=== PATIENT | male | born 1985 | race Caucasian/White ===

== ENCOUNTER 2020-05-30 12:45 | Emergency (ER) | payer OTHER ==
[~2020-05-30] VITALS: Ht 182.9 cm; Wt 73.0 kg
[~2020-05-30 12:45] MED LIST: ALBU90OI INH; CEPH500 PO; CETI10 PO; CRUTCH4 USE; DICY20 PO; ERYT333ERA PO; FAMO20 PO; HYDACE5 PO; HYDACE5325 PO; METPRE4DP PO; Mobic15 MG PO; NAPR550 PO; OXYACE5T PO; PERM5TC TOP; PRED20 PO; PROACE100 PO; PROM25 PO; RXHYD5325 PO; RXNAPNA550 PO; RXTRAM50 PO; SULTRIDS PO; TRAACE PO; VITAMENS; VITS
[2020-05-30] MEDS ORDERED: IBUP400 PO (15:24)
[2020-05-30] MEDS ORDERED: KEFLEX500 MG PO (15:24)
== END 2020-05-30 16:29 | disposition home or self-care (01) ==
LOC: ER 12:45
DX: M79.642 Pain in left hand (principal); Z88.0 Allergy status to penicillin; Z88.1 Allergy status to other antibiotic agents; Z88.5 Allergy status to narcotic agent; F17.210 Nicotine dependence, cigarettes, uncomplicated
CPT/HCPCS: 10060; 73140; 76882; 99283-25; A9270-GY; L3917

== ENCOUNTER 2020-06-03 11:21 | Emergency (ER) | payer OTHER ==
[~2020-06-03] VITALS: Ht 182.9 cm; Wt 72.1 kg
[~2020-06-03 11:21] MED LIST changes: -Bactrim Ds Tab1 EACH PO; -Percocet 5-3251 EACH PO
[2020-06-03] MEDS ORDERED: Bactrim Ds Tab1 EACH PO (15:48)
[2020-06-03] MEDS ORDERED: Percocet 5-3251 EACH PO (17:12)
== END 2020-06-03 17:17 | disposition home or self-care (01) ==
LOC: ER 11:21
DX: L02.512 Cutaneous abscess of left hand (principal); Z88.0 Allergy status to penicillin; Z88.5 Allergy status to narcotic agent; Z88.1 Allergy status to other antibiotic agents; F17.210 Nicotine dependence, cigarettes, uncomplicated
CPT/HCPCS: 73140; 87070; 87075; 87077; 87186; 87205; 99283-25

== ENCOUNTER → 2020-06-03 | Outpatient (CLI) | payer OTHER ==
[~2020-06-03] MED LIST changes: +Bactrim Ds Tab1 EACH PO; +IBUP400 PO; +KEFLEX500 MG PO; +Percocet 5-3251 EACH PO
== END | disposition home or self-care (01) ==
LOC: LAB EV 10:48 → LAB SHORT 10:48
DX: L08.9 Local infection of the skin and subcutaneous tissue, unspecified (principal)
CPT/HCPCS: 87070; 87075; 87077; 87186; 87205

== ENCOUNTER 2020-10-22 19:33 | Emergency (ER) | payer OTHER ==
[~2020-10-22] VITALS: Ht 182.9 cm; Wt 77.1 kg
[~2020-10-22 19:33] MED LIST changes: +Bactrim Ds Tab1 EACH PO; +Percocet 5-3251 EACH PO
[2020-10-22 20:13] LABS: BASOPHILS ABSOLUTE AUTO 0.03 K/mm3 (0.00-0.23); BASOPHILS PERCENT AUTO 0 % (0-2); EOSINOPHILS ABSOLUTE AUTO 0.29 K/mm3 (0.00-0.68); EOSINOPHILS PERCENT AUTO 3 % (0-6); Hematocrit 44.8 % (37.0-53.0); Hemoglobin 15.3 g/dL (13.5-17.5); IMMATURE GRAN ABSOLUTE AUTO 0.02 K/mm3 (0.00-0.10); IMMATURE GRAN PERCENT AUTO 0 % (0-1); LYMPHOCYTES ABSOLUTE AUTO 2.57 K/mm3 (0.84-5.20); LYMPHOCYTES PERCENT AUTO 24 % (21-46); MONOCYTES ABSOLUTE AUTO 0.65 K/mm3 (0.16-1.47); MONOCYTES PERCENT AUTO 6 % (4-13); Mean Corpuscular HGB 30.1 pg (26.0-34.0); Mean Corpuscular HGB Conc 34.2 g/dL (31.5-36.5); Mean Corpuscular Volume 88 fL (80-100); Mean Platelet Volume 10.8 fL (9.1-12.4); NEUTROPHILS PERCENT AUTO 67 % (41-73); Platelet Count 325 K/mm3 (150-400); RDW Coefficient Variation 12.6 % (11.7-14.2); RDW Standard Deviation 40.9 fL (35.1-46.3); Red Blood Cell Count 5.09 M/mm3 (4.30-5.90); White Blood Cell Count 10.86 K/mm3 (4.00-11.30)
[2020-10-22 20:31] LABS: Alanine Aminotransfer (ALT/SGP 16 U/L (12-78); Albumin, Blood 4.3 g/dL (3.4-5.0); Albumin/Globulin Ratio 1.3 (0.8-1.8); Alk Phos 91 U/L (50-136); Anion Gap 6 mmol/L (6-16); Aspartate Aminotrans (AST/SGOT 16 U/L (12-37); Bilirubin, Total 0.6 mg/dL (0.1-1.0); Blood Urea Nitrogen 15 mg/dL (8-24); Bun/Creatinine Ratio 13.6 (12.0-20.0); CO2, Blood 30 mmol/L (21-32); Calcium, Blood 9.4 mg/dL (8.5-10.1); Chloride, Blood 106 mmol/L (98-108); Globulin, Blood 3.4 g/dL (2.2-4.0); Glomerular Filtration Rate >60 (60-); Glucose, Blood 95 mg/dL (70-99); Potassium, Blood 3.7 mmol/L (3.5-5.5); Sodium, Blood 142 mmol/L (136-145); Total Protein, Blood 7.7 g/dL (6.4-8.2)
== END 2020-10-22 23:23 | disposition home or self-care (01) ==
LOC: ER 19:33
PROVIDERS: Physician Assistant
DX: B33.0 Epidemic myalgia (principal); F17.210 Nicotine dependence, cigarettes, uncomplicated; Z88.0 Allergy status to penicillin; Z88.1 Allergy status to other antibiotic agents
CPT/HCPCS: 36415; 80053; 83690; 85025; 96360; 99283-25; J7030

== ENCOUNTER 2021-01-11 09:44 | Emergency (ER) | payer OTHER ==
[~2021-01-11] VITALS: Ht 182.9 cm; Wt 77.1 kg
[2021-01-11 10:21] LABS: BASOPHILS ABSOLUTE AUTO 0.03 K/mm3 (0.00-0.23); BASOPHILS PERCENT AUTO 0 % (0-2); EOSINOPHILS ABSOLUTE AUTO 0.27 K/mm3 (0.00-0.68); EOSINOPHILS PERCENT AUTO 3 % (0-6); Hematocrit 45.3 % (37.0-53.0); Hemoglobin 15.2 g/dL (13.5-17.5); IMMATURE GRAN ABSOLUTE AUTO 0.03 K/mm3 (0.00-0.10); IMMATURE GRAN PERCENT AUTO 0 % (0-1); LYMPHOCYTES ABSOLUTE AUTO 2.22 K/mm3 (0.84-5.20); LYMPHOCYTES PERCENT AUTO 24 % (21-46); MONOCYTES ABSOLUTE AUTO 0.55 K/mm3 (0.16-1.47); MONOCYTES PERCENT AUTO 6 % (4-13); Mean Corpuscular HGB Conc 33.6 g/dL (31.5-36.5); Mean Corpuscular Volume 90 fL (80-100); Mean Platelet Volume 10.6 fL (9.1-12.4); NEUTROPHILS ABSOLUTE AUTO 5.98 K/mm3 (1.96-9.15); NEUTROPHILS PERCENT AUTO 66 % (41-73); Platelet Count 300 K/mm3 (150-400); RDW Coefficient Variation 12.7 % (11.7-14.2); RDW Standard Deviation 41.4 fL (35.1-46.3); Red Blood Cell Count 5.06 M/mm3 (4.30-5.90); White Blood Cell Count 9.08 K/mm3 (4.00-11.30)
[2021-01-11] MEDS ORDERED: SUCR1 PO (10:23)
[2021-01-11] MEDS ORDERED: PANT40 PO (10:23)
== END 2021-01-11 10:35 | disposition home or self-care (01) ==
LOC: ER 09:44
PROVIDERS: Emergency Medicine
DX: K21.9 Gastro-esophageal reflux disease without esophagitis (principal); F17.210 Nicotine dependence, cigarettes, uncomplicated; Z88.0 Allergy status to penicillin; Z88.1 Allergy status to other antibiotic agents
CPT/HCPCS: 36415; 85025; 99283

== ENCOUNTER 2021-02-24 22:27 | Emergency (ER) | payer OTHER ==
[~2021-02-24] VITALS: Ht 182.9 cm; Wt 77.1 kg
[~2021-02-24 22:27] MED LIST changes: +PANT40 PO; +SUCR1 PO
== END 2021-02-25 03:57 | disposition home or self-care (01) ==
LOC: ER 22:27
DX: S39.011A Strain of muscle, fascia and tendon of abdomen, initial encounter (principal); F17.210 Nicotine dependence, cigarettes, uncomplicated; Z88.0 Allergy status to penicillin; Z88.1 Allergy status to other antibiotic agents; Z79.899 Other long term (current) drug therapy; X50.0XXA Overexertion from strenuous movement or load, initial encounter
CPT/HCPCS: 99283

== ENCOUNTER 2021-03-21 11:23 | Emergency (ER) | payer OTHER ==
[~2021-03-21] VITALS: Ht 182.9 cm; Wt 77.1 kg
[2021-03-21] MEDS ORDERED: IBUP600 PO (13:14)
[2021-03-21] MEDS ORDERED: OXAYDO5 M1 PO (13:14)
== END 2021-03-21 13:24 | disposition home or self-care (01) ==
LOC: ER 11:23
DX: S62.306A Unspecified fracture of fifth metacarpal bone, right hand, initial encounter for closed fracture (principal); F17.210 Nicotine dependence, cigarettes, uncomplicated; Z88.1 Allergy status to other antibiotic agents; Z88.0 Allergy status to penicillin; W20.8XXA Other cause of strike by thrown, projected or falling object, initial encounter
CPT/HCPCS: 29125; 73130; 99283-25; A9270

== ENCOUNTER 2021-07-28 14:27 | Emergency (ER) | payer OTHER ==
[~2021-07-28] VITALS: Ht 190.5 cm; Wt 90.7 kg
[~2021-07-28 14:27] MED LIST changes: +IBUP600 PO; +OXAYDO5 M1 PO
[2021-07-28] MEDS ORDERED: VICODIN HP 10-1 EAC1 PO (16:50)
[2021-07-28] MEDS ORDERED: IBUP600 PO (16:51)
== END 2021-07-28 18:05 | disposition home or self-care (01) ==
LOC: ER 14:27
DX: S32.591A Other specified fracture of right pubis, initial encounter for closed fracture (principal); S30.811A Abrasion of abdominal wall, initial encounter; M54.2 Cervicalgia; F17.210 Nicotine dependence, cigarettes, uncomplicated; Z88.0 Allergy status to penicillin; Z88.1 Allergy status to other antibiotic agents; V69.9XXA Occupant (driver) (passenger) of heavy transport vehicle injured in unspecified traffic accident, initial encounter
CPT/HCPCS: 36415; 70450; 71045; 72125; 73552; 74177; 96374; 96375; 99285-25; A9270; J1170; J1885; Q9967

== ENCOUNTER 2022-07-10 12:07 | Emergency (ER) | payer OTHER ==
[~2022-07-10] VITALS: Ht 182.9 cm; Wt 74.8 kg
[~2022-07-10 12:07] MED LIST changes: +VICODIN HP 10-1 EAC1 PO
[2022-07-10 14:39] LABS: BASOPHILS ABSOLUTE AUTO 0.06 K/mm3 (0.00-0.23); BASOPHILS PERCENT AUTO 1 % (0-2); EOSINOPHILS ABSOLUTE AUTO 0.72 K/mm3 (0.00-0.68); EOSINOPHILS PERCENT AUTO 6 % (0-6); Hematocrit 46.9 % (37.0-53.0); Hemoglobin 15.8 g/dL (13.5-17.5); IMMATURE GRAN ABSOLUTE AUTO 0.05 K/mm3 (0.00-0.10); IMMATURE GRAN PERCENT AUTO 0 % (0-1); LYMPHOCYTES ABSOLUTE AUTO 2.76 K/mm3 (0.84-5.20); LYMPHOCYTES PERCENT AUTO 21 % (21-46); MONOCYTES ABSOLUTE AUTO 0.71 K/mm3 (0.16-1.47); MONOCYTES PERCENT AUTO 6 % (4-13); Mean Corpuscular HGB 30.5 pg (26.0-34.0); Mean Corpuscular HGB Conc 33.7 g/dL (31.5-36.5); Mean Corpuscular Volume 91 fL (80-100); Mean Platelet Volume 10.8 fL (9.1-12.4); NEUTROPHILS ABSOLUTE AUTO 8.67 K/mm3 (1.96-9.15); NEUTROPHILS PERCENT AUTO 67 % (41-73); Platelet Count 299 K/mm3 (150-400); RDW Coefficient Variation 12.6 % (11.7-14.2); RDW Standard Deviation 41.6 fL (35.1-46.3); Red Blood Cell Count 5.18 M/mm3 (4.30-5.90); White Blood Cell Count 12.97 K/mm3 (4.00-11.30)
[2022-07-10 15:04] LABS: Albumin, Blood 3.5 g/dL (3.4-5.0); Albumin/Globulin Ratio 1.2 (0.8-1.8); Bilirubin, Total 0.4 mg/dL (0.1-1.0); Bun/Creatinine Ratio 10.3 (12.0-20.0); Calcium, Blood 8.5 mg/dL (8.5-10.1); Creatinine, Blood 0.97 mg/dL (0.60-1.20); Magnesium, Blood 2.5 mg/dL (1.6-2.4); Potassium, Blood 4.3 mmol/L (3.5-5.5); Total Protein, Blood 6.5 g/dL (6.4-8.2)
== END 2022-07-10 15:23 | disposition home or self-care (01) ==
LOC: ER 12:07
PROVIDERS: Student in an Organized Health Care Education/Training Program
DX: R20.2 Paresthesia of skin (principal); F17.210 Nicotine dependence, cigarettes, uncomplicated; Z88.0 Allergy status to penicillin; Z88.1 Allergy status to other antibiotic agents
CPT/HCPCS: 80053; 83735; 85025

== ENCOUNTER 2022-09-21 15:36 | Emergency (ER) | payer OTHER ==
[~2022-09-21] VITALS: Ht 182.9 cm; Wt 77.1 kg
[2022-09-21 16:13] LABS: Source, Urine Clean Catch
[2022-09-21 16:20] LABS: Appearance, Urine Clear (Clear); Bilirubin, Urine Neg (Neg); Blood, Urine Neg (Neg); Color, Urine Yellow (P-Yellow); Glucose Qualitative, Urine Neg (Neg); Ketones, Urine 4+ (Neg); Leukocyte Esterase, Urine 1+ (Neg); Nitrite, Urine Neg (Neg); Protein, Urine 1+ (Neg); Urobilinogen, Urine 1+ (Normal)
[2022-09-21 16:32] LABS: Bacteria Rare /hpf; Red Blood Cells, Urine 0-2 /hpf (0-2); Squamous Epithelial Cells Rare /hpf (Few); White Blood Cells, Urine 0-2 /hpf (0-5)
== END 2022-09-21 18:55 | disposition left against medical advice (07) ==
LOC: ER 15:36
PROVIDERS: Physician Assistant
DX: N50.811 Right testicular pain (principal); N50.812 Left testicular pain; Z53.21 Procedure and treatment not carried out due to patient leaving prior to being seen by health care provider
CPT/HCPCS: 76870; 81001; 87086

== ENCOUNTER → 2022-09-27 | Outpatient (CLI) | payer OTHER ==
[2022-09-29 01:09] LABS: CHLAMYDIA TRACHOMATIS, NAA Negative (Negative)
== END | disposition home or self-care (01) ==
LOC: LAB SHORT 15:40 → LAB 15:40
PROVIDERS: Nurse Practitioner Family
DX: R10.9 Unspecified abdominal pain (principal)
CPT/HCPCS: 87086; 87491; 87591